=== PATIENT | female | born 1995 | race Two or more races ===

== ENCOUNTER 2020-11-21 15:15 | Inpatient (IN) | payer OTHER ==
[~2020-11-21] VITALS: Ht 149.9 cm; Wt 65.3 kg
[2020-12-05] MEDS ORDERED: PRENATAL CAPLE1 EAC1 PO (10:06)
== END 2020-12-07 16:47 | disposition home or self-care (01) | DRG 768 ==
LOC: OB/GYN 12-02 15:15 → LDR 12-05 03:26 → SURG-SUITE 12-05 03:26
PROVIDERS: ADMIT Student in an Organized Health Care Education/Training Program; ATTEND Student in an Organized Health Care Education/Training Program
PROC: 10D07Z6 Extraction of Products of Conception, Vacuum, Via Natural or Artificial Opening (ICD-10-PCS; principal; 2020-12-05)
PROC: 0DQR0ZZ Repair Anal Sphincter, Open Approach (ICD-10-PCS; 2020-12-05)
PROC: 0W8NXZZ Division of Female Perineum, External Approach (ICD-10-PCS; 2020-12-05)
PROC: 10907ZC Drainage of Amniotic Fluid, Therapeutic from Products of Conception, Via Natural or Artificial Opening (ICD-10-PCS; 2020-12-05)
PROC: 10H073Z Insertion of Monitoring Electrode into Products of Conception, Via Natural or Artificial Opening (ICD-10-PCS; 2020-12-05)
PROC: 4A1H7FZ Monitoring of Products of Conception, Cardiac Rhythm, Via Natural or Artificial Opening (ICD-10-PCS; 2020-12-05)
DX: O48.0 Post-term pregnancy (principal); O70.20 Third degree perineal laceration during delivery, unspecified; O99.824 Streptococcus B carrier state complicating childbirth; Z37.0 Single live birth; Z3A.40 40 weeks gestation of pregnancy